=== PATIENT | male | born 1975 | race African-American/Black ===

== ENCOUNTER 2018-11-28 21:49 | Observation (INO) | payer OTHER ==
--- NOTE | 2018-11-28 22:23 | ED ---
General Adult HPI - General Chief complaint: Alcohol Stated complaint: etoh Time Seen by Provider: 11/28/18 21:50 Source: patient, EMS Mode of arrival: EMS Limitations: no limitations - History of Present Illness Initial comments: Dictation was produced using [employer] dictation software. please excuse any grammatical, word or spelling errors. Chief Complaint: 43-year-old male presents with intoxication. History of Present Illness: 33-year-old male he states he had multiple colic beverages. He was walking home. He was approximately one block away from home when law enforcement discovered him. EMS was called and patient was transported to the emergency department. Patient has a complex at this time. States it's in the colic beverages today. Denies any complaints. Patient is wants to sleep. The ROS documented in this emergency department record has been reviewed and confirmed by me. Those systems with pertinent positive or negative responses have been documented in the HPI. All other systems are other negative and/or noncontributory. PHYSICAL EXAM: General Impression: Alert and oriented x3, not in acute distress HEENT: Normocephalic atraumatic, extra-ocular movements intact, pupils equal and reactive to light bilaterally, mucous membranes moist. Cardiovascular: Heart regular rate and rhythm, S1&S2 audible, no murmurs, rubs or gallops Chest: Lungs clear to auscultation bilaterally, no rhonchi, no wheeze, no rales Abdomen: Bowel sounds present, abdomen soft, non-tender, non-distended, no organ omegaly Musculoskeletal: Pulses present and equal in all extremities, no peripheral edema Motor: no focal deficits noted Neurological: CN II-XII grossly intact, no focal motor or sensory deficits noted Skin: Intact with no visualized rashes Psych: Normal affect and mood ED course: 43 y Old male presents with EtOH intoxication. His upon arrival are within acceptable limits. Patient well-appearing. Physical examination is benign. He is cooperative. Return evaluation obtained. CBC unremarkable. Metabolic panel shows sodium 146. Serum alcohol level is 446. Patient is well-appearing at this time. We'll admit patient for acute EtOH intoxication. [facility] is ordered. - Related Data Home Medications Medication Instructions Recorded Confirmed No Known Home Medications 11/28/18 11/28/18 Allergies Allergy/AdvReac Type Severity Reaction Status Date / Time No Known Allergies Allergy Verified 11/28/18 22:04 Review of Systems ROS Statement: Those systems with pertinent positive or pertinent negative responses have been documented in the HPI. ROS Other: All systems not noted in ROS Statement are negative. Past Medical History Past Medical History: Hypertension History of Any Multi-Drug Resistant Organisms: None Reported Past Surgical History: No Surgical Hx Reported Past Psychological History: No Psychological Hx Reported Smoking Status: Current some day smoker Past Alcohol Use History: Occasional Past Drug Use History: None Reported General Exam Limitations: no limitations Course Vital Signs 11/28/18 21:50 Temperature 98.5 F Pulse Rate 96 Respiratory 18 Rate Blood Pressure 137/93 O2 Sat by Pulse 95 Oximetry Medical Decision Making - Lab Data Result diagrams: 11/28/18 22:46 11/28/18 22:46 Lab Results 11/28/18 11/28/18 Range/Units 22:46 22:46 WBC 3.4 L (3.8-10.6) k/uL RBC 3.69 L (4.30-5.90) m/uL Hgb 12.5 L (13.0-17.5) gm/dL Hct 37.4 L (39.0-53.0) % MCV 101.5 H (80.0-100.0) fL MCH 34.0 (25.0-35.0) pg MCHC 33.5 (31.0-37.0) g/dL RDW 13.3 (11.5-15.5) % Plt Count 200 (150-450) k/uL Neutrophils % 50 % Lymphocytes % 35 % Monocytes % 7 % Eosinophils % 3 % Basophils % 1 % Neutrophils # 1.7 (1.3-7.7) k/uL Lymphocytes # 1.2 (1.0-4.8) k/uL Monocytes # 0.2 (0-1.0) k/uL Eosinophils # 0.1 (0-0.7) k/uL Basophils # 0.0 (0-0.2) k/uL Sodium 146 H (137-145) mmol/L Potassium 4.0 (3.5-5.1) mmol/L Chloride 109 H (98-107) mmol/L Carbon Dioxide 29 (22-30) mmol/L Anion Gap 8 mmol/L BUN 10 (9-20) mg/dL Creatinine 0.86 (0.66-1.25) mg/dL Est GFR (CKD-EPI)AfAm >90 (>60 ml/min/1.73 sqM) Est GFR (CKD-EPI)NonAf >90 (>60 ml/min/1.73 sqM) Glucose 94 (74-99) mg/dL Calcium 8.6 (8.4-10.2) mg/dL Magnesium 2.1 (1.6-2.3) mg/dL Total Bilirubin 0.2 (0.2-1.3) mg/dL AST 91 H (17-59) U/L ALT 40 (21-72) U/L Alkaline Phosphatase 93 (38-126) U/L Total Protein 8.2 (6.3-8.2) g/dL Albumin 4.2 (3.5-5.0) g/dL Serum Alcohol 446 H* mg/dL Disposition Clinical Impression: Alcohol intoxication Disposition: ADMITTED IP TO THIS [facility] Condition: Fair Referrals: None,Stated [Primary Care Provider] - 1-2 days Decision Time: 00:03
[2018-11-28 23:03] LABS: ALT 40 U/L (21-72); AST 91 U/L (17-59); African American GFR (CKD) >90 (>60 ml/min/1.73 sqM); Albumin 4.2 g/dL (3.5-5.0); Alkaline Phosphatase 93 U/L (38-126); Anion Gap 8 mmol/L; Basophils % (A) 1 %; Blood Urea Nitrogen 10 mg/dL (9-20); Calcium 8.6 mg/dL (8.4-10.2); Carbon Dioxide 29 mmol/L (22-30); Chloride 109 mmol/L (98-107); Eosinophils # (A) 0.1 k/uL (0-0.7); Eosinophils % (A) 3 %; Glucose 94 mg/dL (74-99); HCT 37.4 % (39.0-53.0); HGB 12.5 gm/dL (13.0-17.5); Lymphocytes # (A) 1.2 k/uL (1.0-4.8); Lymphocytes % (A) 35 %; MCHC 33.5 g/dL (31.0-37.0); MCV 101.5 fL (80.0-100.0); Magnesium 2.1 mg/dL (1.6-2.3); Mean Platelet Volume 7.5; Monocytes # (A) 0.2 k/uL (0-1.0); Monocytes % (A) 7 %; Neutrophils # (A) 1.7 k/uL (1.3-7.7); Neutrophils % (A) 50 %; Non-African American GFR(CKD) >90 (>60 ml/min/1.73 sqM); Platelet Count 200 k/uL (150-450); RBC 3.69 m/uL (4.30-5.90); RDW 13.3 % (11.5-15.5); Sodium 146 mmol/L (137-145); Total Bilirubin 0.2 mg/dL (0.2-1.3); Total Protein 8.2 g/dL (6.3-8.2); WBC 3.4 k/uL (3.8-10.6)
[2018-11-28 23:27] LABS: Alcohol 446 mg/dL
[2018-11-28] MEDS ORDERED: SODIUM CHLORIDE 0.9% 1,000 ML IV STA ×2 (23:36)
[2018-11-28] MEDS ORDERED: FOLIC ACID 1 MG TAB PO STA (23:36)
[2018-11-28] MEDS ORDERED: THIAMINE 100 MG/ML 2 ML VIAL IM STA (23:36)
[2018-11-29] MEDS: MULTIVITAMINS, THERA 1 EACH TAB PO STA (00:01)
[2018-11-29] MEDS ORDERED: NALOXONE 0.4 MG/ML 1 ML VIAL IV PRN (00:04)
[2018-11-29] MEDS ORDERED: ACETAMINOPHEN TAB 325 MG TAB PO PRN (00:04)
[2018-11-29] MEDS ORDERED: LORazepam 2 MG/ML INJ IV PRN ×3 (00:05)
[2018-11-29] MEDS ORDERED: SODIUM CHLORIDE 0.9% 1,000 ML IV SCH (00:15)
[2018-11-29 00:22] VITALS: RESP 16
[2018-11-29 00:24] LABS: Glucose,Whole Blood 85 mg/dL (75-99)
[2018-11-29 02:13] VITALS: PULSE 83
[2018-11-29 04:31] VITALS: BP 117/82; TEMP 97.7
[2018-11-29] MEDS ORDERED: THIAMINE 100 MG TAB PO SCH (17:00)
--- NOTE | 2018-12-04 14:40 | HP ---
HISTORY AND PHYSICAL HISTORY AND PHYSICAL AND DISCHARGE SUMMARY: CHIEF COMPLAINT: Alcohol intoxication. HISTORY OF PRESENT ILLNESS: This is a 43-year-old gentleman was admitted with alcohol intoxication, but; however, the patient LEFT THE HOSPITAL AGAINST MEDICAL ADVICE from the ER itself. Please refer to the ER notes and staff notes and further information. FINAL DIAGNOSIS: Alcohol intoxication. Prognosis remains guarded throughout the hospital stay. MMODL / IJN: [id number] /
== END 2018-11-29 06:50 | disposition left against medical advice (07) ==
LOC: EC 21:49 → 3NMEDONC 11-29 00:04
PROVIDERS: ADMIT Hospitalist; ATTEND Hospitalist
DX: F10.129 Alcohol abuse with intoxication, unspecified (principal); Y90.8 Blood alcohol level of 240 mg/100 ml or more; I10 Essential (primary) hypertension; F17.200 Nicotine dependence, unspecified, uncomplicated; Z53.21 Procedure and treatment not carried out due to patient leaving prior to being seen by health care provider
CPT/HCPCS: 96361; 96360; 96372; 99285; 36415 ×2; 80053; 83735; 85025; G0378; G0480; J3411; 80320

== ENCOUNTER 2023-04-25 20:50 | Emergency (ER) | payer OTHER ==
[2023-04-25] MEDS ORDERED: KETOROLAC 15 MG/ML 1 ML VIAL IM STA (21:06)
--- NOTE | 2023-04-25 21:07 | ED ---
Lower Extremity Injury HPI - General Chief Complaint: Extremity Injury, Lower Stated Complaint: Hip pain Time Seen by Provider: 04/25/23 21:06 Source: patient Mode of arrival: ambulatory Limitations: no limitations - History of Present Illness Initial Comments: 47-year-old male presenting with chief complaint of left ankle pain and bilateral hip pain. Patient states that he slipped on a skateboard 2 months ago and is having soreness. He has no new injury. He has no numbness or tingling. He is observed walking into the department and walking into the triage [facility] with no difficulty. He has not been taking anything at home for pain. - Related Data Home Medications Medication Instructions Recorded Confirmed No Known Home Medications 11/28/18 11/28/18 Allergies Allergy/AdvReac Type Severity Reaction Status Date / Time No Known Allergies Allergy Verified 11/28/18 22:04 Review of Systems ROS Statement: Those systems with pertinent positive or pertinent negative responses have been documented in the HPI. ROS Other: All systems not noted in ROS Statement are negative. Past Medical History Past Medical History: Hypertension History of Any Multi-Drug Resistant Organisms: None Reported Past Surgical History: No Surgical Hx Reported Past Psychological History: No Psychological Hx Reported Smoking Status: Current every day smoker Past Alcohol Use History: Occasional Past Drug Use History: None Reported General Exam Limitations: no limitations General appearance: alert, in no apparent distress Head exam: Present: atraumatic, normocephalic Eye exam: Present: normal appearance, EOMI Neck exam: Present: normal inspection Respiratory exam: Absent: respiratory distress Extremities exam: Present: normal inspection, full ROM Neurological exam: Present: alert, oriented X3 Psychiatric exam: Present: normal affect, normal mood Skin exam: Present: warm, dry Course Vital Signs 04/25/23 21:03 Temperature 98 F Pulse Rate 111 H Respiratory 20 Rate Blood Pressure 130/78 O2 Sat by Pulse 98 Oximetry Medical Decision Making - Medical Decision Making Was pt. sent in by a medical professional or institution (, PA, [employer], urgent care, hospital, or alf...) When possible be specific @ -No Did you speak to anyone other than the patient for history (EMS, parent, family, police, friend...)? What history was obtained from this source @ -No Did you review nursing and triage notes (agree or disagree)? Why? @ -I reviewed and agree with nursing and triage notes Were old charts reviewed (outside hosp., previous admission, EMS record, old EKG, old radiological studies, urgent care reports/EKG's, alf records)? Report findings @ -No old charts were reviewed Differential Diagnosis (chest pain, altered mental status, abdominal pain women, abdominal pain men, vaginal bleeding, weakness, fever, dyspnea, syncope, headache, dizziness, GI bleed, back pain, seizure, CVA, palpatations, mental health, musculoskeletal)? @ -Differential Musculoskeletal Muscular strain, contusion, ligament sprain, fracture, arthritis, septic arthritis, bursitis, cellulitis, muscle spasm, nerve compression, DVT, arterial occlusion, herpes zoster, electrolyte abnormality, tumor.... This is not meant to be in all inclusive list EKG interpreted by me (3pts min.). @ -As above X-rays interpreted by me (1pt min.). @ -None done CT interpreted by me (1pt min.). @ -None done U/S interpreted by me (1pt. min.). @ -None done What testing was considered but not performed or refused? (CT, X-rays, U/S, labs)? Why? @ -None What meds were considered but not given or refused? Why? @ -None Did you discuss the management of the patient with other professionals (professionals i.e. , PA, [employer]SHAL, lab, RT, psych nurse, social work professor, physician recruiter, teacher, chief analytics officer, rifle case repairer)? Give summary @ -No Was smoking cessation discussed for >3mins.? @ -No Was critical care preformed (if so, how long)? @ -No Were there social determinants of health that impacted care today? How? (Homelessness, low income, unemployed, alcoholism, drug addiction, transportation, low edu. Level, literacy, decrease access to med. care, shelter, rehab)? @ -No Was there de-escalation of care discussed even if they declined (Discuss DNR or withdrawal of care, Hospice)? DNR status @ -No What co-morbidities impacted this encounter? (DM, HTN, Smoking, COPD, CAD, Cancer, CVA, ARF, Chemo, Hep., AIDS, mental health diagnosis, sleep apnea, morbid obesity)? @ -None Was patient admitted / discharged? Hospital course, mention meds given and route, prescriptions, significant lab abnormalities, going to OR and other pertinent info. @ -47-year-old male presenting with chief complaint of hip pain and left ankle pain. He states that 2 months ago he slipped on a skateboard and he is having soreness. He has had no new injuries since then. He is observed walking into the department and into the triage [facility]oses without difficulty. Physical exam unremarkable. Patient is treated with Toradol and discharged home. Follow-up with PCP. Report back to ER with any new or worsening symptoms. Discussed return parameters and answered all questions. Patient conveyed verbal understanding and agreed to the plan. I discussed this case in detail with my attending Undiagnosed new problem with uncertain prognosis? @ -No Drug Therapy requiring intensive monitoring for toxicity (Heparin, Nitro, Insulin, Cardizem)? @ -No Were any procedures done? @ -No Diagnosis/symptom? @ -hip pain Acute, or Chronic, or Acute on Chronic? @ -acute Uncomplicated (without systemic symptoms) or Complicated (systemic symptoms)? @ -Uncomplicated Side effects of treatment? @ -No Exacerbation, Progression, or Severe Exacerbation? @ -No Poses a threat to life or bodily function? How? (Chest pain, [place], [place], pneumonia, PE, COPD, DKA, ARF, appy, cholecystitis, CVA, Diverticulitis, Homicidal, Suicidal, threat to staff... and all critical care pts) @ -No Disposition Clinical Impression: Hip pain Disposition: HOME SELF-CARE Condition: Good Instructions (If sedation given, give patient instructions): Hip Pain (ED) Additional Instructions: Follow-up with PCP. Report back to ER with any new or worsening symptoms. Is patient prescribed a controlled substance at d/c from ED?: No Referrals: Sharon Morales MD [Primary Care Provider] - 1-2 days
[2023-04-25 21:43] VITALS: BP 130/78; PULSE 111; RESP 20; TEMP 98
== END 2023-04-25 21:21 | disposition home or self-care (01) ==
LOC: EC 20:50
DX: M25.551 Pain in right hip (principal); M25.552 Pain in left hip; I10 Essential (primary) hypertension; F17.200 Nicotine dependence, unspecified, uncomplicated; W01.0XXA Fall on same level from slipping, tripping and stumbling without subsequent striking against object, initial encounter
CPT/HCPCS: 99283; 96372; J1885

== ENCOUNTER 2023-04-26 18:17 | Emergency (ER) | payer OTHER ==
[2023-04-26 18:45] VITALS: BP 117/73; PULSE 109; RESP 20; TEMP 98.3
--- NOTE | 2023-04-26 18:57 | ED ---
Male Urogenital HPI - General Source: patient, RN notes reviewed Mode of arrival: ambulatory Limitations: no limitations <Vita Cruz - Last Filed: 04/26/23 18:56> <Tess Klein - Last Filed: 04/27/23 01:52> - General Chief complaint: Urogenital Stated complaint: growth urogenital Time Seen by Provider: 04/26/23 18:56 - History of Present Illness Initial comments: Patient is a 47-year-old male presented ER with chief complaint of a groin mass. Patient states that it's been there for years. Patient denies any urinary complaints, constipation/diarrhea, fevers, chills, night sweats. (Vita Cruz) 47-year-old male presenting with chief complaint of a "growth" to his groin. He states that it has been there for years. There is no pain no increasing size no redness no swelling no discharge. He has no changes to this area. No fevers or chills. No nausea or vomiting. He states that he has had diarrhea intermittently for the last 2 years. Patient is currently unhoused. (Tess Klein) - Related Data Home Medications Medication Instructions Recorded Confirmed No Known Home Medications 11/28/18 11/28/18 Allergies Allergy/AdvReac Type Severity Reaction Status Date / Time No Known Allergies Allergy Verified 11/28/18 22:04 Review of Systems ROS Other: All systems not noted in ROS Statement are negative. <Vita Cruz - Last Filed: 04/26/23 18:56> ROS Other: All systems not noted in ROS Statement are negative. <Tess Klein - Last Filed: 04/27/23 01:52> ROS Statement: Those systems with pertinent positive or pertinent negative responses have been documented in the HPI. Past Medical History Past Medical History: Hypertension History of Any Multi-Drug Resistant Organisms: None Reported Past Surgical History: No Surgical Hx Reported Past Psychological History: No Psychological Hx Reported Smoking Status: Current every day smoker Past Alcohol Use History: Occasional Past Drug Use History: None Reported <Vita Cruz - Last Filed: 04/26/23 18:56> General Exam Limitations: no limitations <Vita Cruz - Last Filed: 04/26/23 18:56> Limitations: no limitations General appearance: alert, in no apparent distress Head exam: Present: atraumatic, normocephalic Eye exam: Present: normal appearance, EOMI Neck exam: Present: normal inspection Respiratory exam: Present: normal lung sounds bilaterally. Absent: respiratory distress, wheezes, rales, rhonchi, stridor Cardiovascular Exam: Present: regular rate, normal rhythm, normal heart sounds. Absent: systolic murmur, diastolic murmur, rubs, gallop, clicks GI/Abdominal exam: Present: soft. Absent: distended, tenderness, guarding, rebound, rigid exam: Present: normal inspection. Absent: testicular tenderness, urethral discharge, scrotal swelling External exam: Present: normal external exam Neurological exam: Present: alert, oriented X3 Psychiatric exam: Present: normal affect, normal mood Skin exam: Present: warm, dry <Tess Klein - Last Filed: 04/27/23 01:52> - General Exam Comments Initial Comments: Visual Physical Exam Vital signs reviewed General: Well-appearing, nontoxic, no acute distress. Head: Normocephalic, atraumatic Eyes: PERRLA, EOMI ENT: Airway patent Chest: Nonlabored breathing Skin: No visual rash, normal skin tone Neuro: Alert and oriented 3 Musculoskeletal: No gross abnormalities (Vita Cruz) Course Vital Signs 04/26/23 18:23 Temperature 98.3 F Pulse Rate 109 H Respiratory 20 Rate Blood Pressure 117/73 O2 Sat by Pulse 97 Oximetry Medical Decision Making <Vita Cruz - Last Filed: 04/26/23 18:56> <Tess Klein - Last Filed: 04/27/23 01:52> - Medical Decision Making I performed the quick note portion of the exam. Electronically signed by Vita Cruz PA-C (Vita Cruz) Was pt. sent in by a medical professional or institution ([facility], [employer], urgent care, hospital, or correction...) When possible be specific @ -No Did you speak to anyone other than the patient for history (EMS, parent, family, police, friend...)? What history was obtained from this source @ -No Did you review nursing and triage notes (agree or disagree)? Why? @ -I reviewed and agree with nursing and triage notes Were old charts reviewed (outside hosp., previous admission, EMS record, old EKG, old radiological studies, urgent care reports/EKG's, correction records)? Report findings @ -No old charts were reviewed Differential Diagnosis (chest pain, altered mental status, abdominal pain women, abdominal pain men, vaginal bleeding, weakness, fever, dyspnea, syncope, headache, dizziness, GI bleed, back pain, seizure, CVA, palpatations, mental health, musculoskeletal)? @ -Differential includes hernia, torsion, hydrocele, varicocele, epididymitis, this is not an all-inclusive list EKG interpreted by me (3pts min.). @ -As above X-rays interpreted by me (1pt min.). @ -None done CT interpreted by me (1pt min.). @ -None done U/S interpreted by me (1pt. min.). @ -None done What testing was considered but not performed or refused? (CT, X-rays, U/S, labs)? Why? @ -None What meds were considered but not given or refused? Why? @ -None Did you discuss the management of the patient with other professionals (professionals i.e. , PA, [employer]ESSMENT, lab, RT, psych nurse, social contact worker, risk engineer, teacher, safety instruction police officer, manager landscape)? Give summary @ -No Was smoking cessation discussed for >3mins.? @ -No Was critical care preformed (if so, how long)? @ -No Were there social determinants of health that impacted care today? How? (Homelessness, low income, unemployed, alcoholism, drug addiction, transportation, low edu. Level, literacy, decrease access to med. care, correction, rehab)? @ -No Was there de-escalation of care discussed even if they declined (Discuss DNR or withdrawal of care, Hospice)? DNR status @ -No What co-morbidities impacted this encounter? (DM, HTN, Smoking, COPD, CAD, Cancer, CVA, ARF, Chemo, Hep., AIDS, mental health diagnosis, sleep apnea, morbid obesity)? @ -None Was patient admitted / discharged? Hospital course, mention meds given and route, prescriptions, significant lab abnormalities, going to OR and other pertinent info. @ -47-year-old male presenting with chief complaint of a growth" to his groin that has been present for the last 2 years and unchanged. It is unclear why the patient decided to come in today. He states that he currently does not have a place to stay. Physical exam heart and lungs are clear to auscultation, abdomen is soft, nontender, nondistended. There is slight enlargement over the left testicle, this may be a hydrocele or varicocele. There is no pain or redness. No other alarming features. Patient is instructed to follow-up with his PCP regarding chronic issues. Discharged home. Follow-up with PCP. Report back to ER with any new or worsening symptoms. Discussed return parameters and answered all questions. Patient conveyed verbal understanding and agreed to the plan. I discussed this case in detail with my attending Dr. Callaway Undiagnosed new problem with uncertain prognosis? @ -No Drug Therapy requiring intensive monitoring for toxicity (Heparin, Nitro, Insulin, Cardizem)? @ -No Were any procedures done? @ -No Diagnosis/symptom? @ -Scrotal abnormality Acute, or Chronic, or Acute on Chronic? @ -Chronic Uncomplicated (without systemic symptoms) or Complicated (systemic symptoms)? @ -Uncomplicated Side effects of treatment? @ -No Exacerbation, Progression, or Severe Exacerbation? @ -No Poses a threat to life or bodily function? How? (Chest pain, [place], [place], pneumonia, PE, COPD, DKA, ARF, appy, cholecystitis, CVA, Diverticulitis, Homicidal, Suicidal, threat to staff... and all critical care pts) @ -No (Tess Klein) Disposition <Vita Cruz - Last Filed: 04/26/23 18:56> Is patient prescribed a controlled substance at d/c from ED?: No Time of Disposition: 19:54 <Tess Klein - Last Filed: 04/27/23 01:52> Clinical Impression: Scrotal sac enlargement Disposition: HOME SELF-CARE Condition: Good Instructions (If sedation given, give patient instructions): Hydrocele (ED) Additional Instructions: You need to follow-up with your PCP. Report back to ER with any new or worsening symptoms including pain, redness, swelling, vomiting, fever. Referrals: Sandra Ludwig FNPBC [Family Provider] - 1-2 days
== END 2023-04-26 20:18 | disposition home or self-care (01) ==
LOC: EC 18:17
DX: N50.89 Other specified disorders of the male genital organs (principal); I10 Essential (primary) hypertension; F17.200 Nicotine dependence, unspecified, uncomplicated
CPT/HCPCS: 99282

== ENCOUNTER 2023-04-27 22:39 | Emergency (ER) | payer OTHER ==
[2023-04-27 23:53] VITALS: BP 122/79; PULSE 81; RESP 18; TEMP 98.4
[2023-04-28] MEDS ORDERED: ONDANSETRON ODT 4 MG TAB PO STA (00:23)
--- NOTE | 2023-04-28 00:24 | ED ---
Nausea/Vomiting/Diarrhea HPI - General Chief complaint: Nausea/Vomiting/Diarrhea Stated complaint: N/V/D Time Seen by Provider: 04/27/23 23:51 Source: patient Mode of arrival: ambulatory Limitations: no limitations - History of Present Illness Initial comments: 47-year-old male presenting with chief complaint of nausea. Patient was with a friend in the waiting room for several hours before deciding to check in as a patient. He states he has had nausea for the last 2 days. He has vomited twice. He also states that he has had a bit of cough and congestion due to the weather. No abdominal pain. No fevers or chills. No chest pain or difficulty breathing. No diarrhea. - Related Data Home Medications Medication Instructions Recorded Confirmed No Known Home Medications 11/28/18 11/28/18 Allergies Allergy/AdvReac Type Severity Reaction Status Date / Time No Known Allergies Allergy Verified 11/28/18 22:04 Review of Systems ROS Statement: Those systems with pertinent positive or pertinent negative responses have been documented in the HPI. ROS Other: All systems not noted in ROS Statement are negative. Past Medical History Past Medical History: Hypertension History of Any Multi-Drug Resistant Organisms: None Reported Past Surgical History: No Surgical Hx Reported Past Psychological History: No Psychological Hx Reported Smoking Status: Current every day smoker Past Alcohol Use History: Occasional Past Drug Use History: None Reported General Exam Limitations: no limitations General appearance: alert, in no apparent distress Head exam: Present: atraumatic, normocephalic Eye exam: Present: normal appearance Neck exam: Present: normal inspection Respiratory exam: Absent: respiratory distress Cardiovascular Exam: Present: regular rate Extremities exam: Present: normal inspection Neurological exam: Present: alert, oriented X3 Psychiatric exam: Present: normal affect, normal mood Skin exam: Present: warm, dry Course Vital Signs 04/27/23 23:26 Temperature 98.4 F Pulse Rate 81 Respiratory 18 Rate Blood Pressure 122/79 O2 Sat by Pulse 98 Oximetry Medical Decision Making - Medical Decision Making Was pt. sent in by a medical professional or institution ([facility], [facility] GUIDE, urgent care, hospital, or intermediate...) When possible be specific @ -No Did you speak to anyone other than the patient for history (EMS, parent, family, police, friend...)? What history was obtained from this source @ -No Did you review nursing and triage notes (agree or disagree)? Why? @ -I reviewed and agree with nursing and triage notes Were old charts reviewed (outside hosp., previous admission, EMS record, old EKG, old radiological studies, urgent care reports/EKG's, intermediate records)? Report findings @ -No old charts were reviewed Differential Diagnosis (chest pain, altered mental status, abdominal pain women, abdominal pain men, vaginal bleeding, weakness, fever, dyspnea, syncope, headache, dizziness, GI bleed, back pain, seizure, CVA, palpatations, mental health, musculoskeletal)? @ -Differential includes gastroenteritis, appendicitis, cholecystitis, pancreatitis, this is not an all-inclusive list EKG interpreted by me (3pts min.). @ -As above X-rays interpreted by me (1pt min.). @ -None done CT interpreted by me (1pt min.). @ -None done U/S interpreted by me (1pt. min.). @ -None done What testing was considered but not performed or refused? (CT, X-rays, U/S, labs)? Why? @ -None What meds were considered but not given or refused? Why? @ -None Did you discuss the management of the patient with other professionals (professionals i.e. , PA, WELLNESS GUIDE, lab, RT, psych nurse, social services counselor, marking machine operator, teacher, staff air tactical officer, hospice case manager)? Give summary @ -No Was smoking cessation discussed for >3mins.? @ -No Was critical care preformed (if so, how long)? @ -No Were there social determinants of health that impacted care today? How? (Homelessness, low income, unemployed, alcoholism, drug addiction, transportation, low edu. Level, literacy, decrease access to med. care, care home, rehab)? @ -No Was there de-escalation of care discussed even if they declined (Discuss DNR or withdrawal of care, Hospice)? DNR status @ -No What co-morbidities impacted this encounter? (DM, HTN, Smoking, COPD, CAD, Cancer, CVA, ARF, Chemo, Hep., AIDS, mental health diagnosis, sleep apnea, morbid obesity)? @ -None Was patient admitted / discharged? Hospital course, mention meds given and ro ladarius, prescriptions, significant lab abnormalities, going to OR and other pertinent info. @ -47-year-old male presenting with chief complaint of nausea. Patient was in the waiting room for several hours with a friend before deciding to check in as a patient. History and physical exam are conducted. He is resting comfortably talking and laughing with friends and showing no signs of distress. Patient is negative for influenza, RSV, and COVID. Patient is given Zofran. Discharge. Follow-up with PCP. Report back to ER with any new or worsening symptoms. Discussed return parameters and answered all questions. Patient conveyed verbal understanding and agreed to the plan. I discussed this case in detail with my attending Dr. Farias Undiagnosed new problem with uncertain prognosis? @ -No Drug Therapy requiring intensive monitoring for toxicity (Heparin, Nitro, Insulin, Cardizem)? @ -No Were any procedures done? @ -No Diagnosis/symptom? @ -Nausea Acute, or Chronic, or Acute on Chronic? @ -Acute Uncomplicated (without systemic symptoms) or Complicated (systemic symptoms)? @ -Uncomplicated Side effects of treatment? @ -No Exacerbation, Progression, or Severe Exacerbation? @ -No Poses a threat to life or bodily function? How? (Chest pain, USA, ID, pneumonia, PE, COPD, DKA, ARF, appy, cholecystitis, CVA, Diverticulitis, Homicidal, Suicidal, threat to staff... and all critical care pts) @ -No - Lab Data Lab Results 04/28/23 Range/Units 00:31 Influenza Type A (PCR) Not Detected (Not Detectd) Influenza Type B (PCR) Not Detected (Not Detectd) RSV (PCR) Not Detected (Not Detectd) SARS-CoV-2 (PCR) Not Detected (Not Detectd) Disposition Clinical Impression: Nausea Disposition: HOME SELF-CARE Condition: Good Instructions (If sedation given, give patient instructions): Acute Nausea and Vomiting (ED) Additional Instructions: Follow-up with PCP. Report back to ER with any new or worsening symptoms. Is patient prescribed a controlled substance at d/c from ED?: No Referrals: Sharon Morales MD [Primary Care Provider] - 1-2 days Time of Disposition: 00:36
== END 2023-04-28 01:09 | disposition home or self-care (01) ==
LOC: EC 22:39
DX: R11.2 Nausea with vomiting, unspecified (principal); I10 Essential (primary) hypertension; F17.200 Nicotine dependence, unspecified, uncomplicated; Z20.822 Contact with and (suspected) exposure to COVID-19
CPT/HCPCS: 87636; 99284

== ENCOUNTER 2023-04-28 09:46 | Emergency (ER) | payer OTHER ==
[2023-04-28] MEDS ORDERED: METOCLOPRAMIDE 10 MG TAB PO STA (09:58)
--- NOTE | 2023-04-28 10:01 | ED ---
General Adult HPI - General Source: patient, RN notes reviewed Mode of arrival: ambulatory Limitations: no limitations <Sadaf Quinteros - Last Filed: 04/28/23 09:59> <Hector Johnston - Last Filed: 04/28/23 16:44> - General Chief complaint: Urogenital Stated complaint: swelling in groin Time Seen by Provider: 04/28/23 09:55 - History of Present Illness Initial comments: This is a 47-year-old male who presents to the emergency department for left testicular swelling and nausea/vomiting. Patient was evaluated here last night for nausea and vomiting and treated with Zofran. States that this made him vomit and he continues to feel nauseous. He was also evaluated here couple of days ago for the scrotal swelling, which has been a problem for the last couple of years. He cannot recall what was done for him at that time. Patient does not currently have a place to stay and has been sleeping in the emergency department waiting room and wandering around the hospital for the last 3 days. (Sadaf Quinteros) Patient is a 47-year-old male who presents emergency department complaining of chronic groin symptoms. States he has noticed a swelling in his groin that has been ongoing for "months." No acute changes. States that it sometimes tender but currently denies any pain. Has been seen here multiple times over the last 2 days for the same complaint. No new symptoms. No fevers or chills. No sick contacts. No dysuria or hematuria. No concern for STDs. No urethral discharge . Previously showed hydroceles in the left scrotum. Presents for reevaluation at this time.Patient originally evaluated as a quick note. I evaluated him when he was placed in the room after completion of workup. (Hector Johnston) - Related Data Home Medications Medication Instructions Recorded Confirmed No Known Home Medications 11/28/18 11/28/18 Allergies Allergy/AdvReac Type Severity Reaction Status Date / Time No Known Allergies Allergy Verified 04/28/23 09:58 Review of Systems ROS Other: All systems not noted in ROS Statement are negative. <Sadaf Quinteros - Last Filed: 04/28/23 09:59> ROS Other: All systems not noted in ROS Statement are negative. <Hector Johnston - Last Filed: 04/28/23 16:44> ROS Statement: Those systems with pertinent positive or pertinent negative responses have been documented in the HPI. Review of Systems: CONST: Denies fever EYES: Denies blurry vision ENT: Denies nasal congestion C/V: Denies Chest pain RESP: Denies shortness of breath GI: Denies abdominal pain : Endorses left scrotal swelling SKIN: Denies rash. MSK: Denies joint pain. NEURO: Denies headache (Hector Johnston) Past Medical History Past Medical History: Hypertension History of Any Multi-Drug Resistant Organisms: None Reported Past Surgical History: No Surgical Hx Reported Past Psychological History: No Psychological Hx Reported Smoking Status: Current every day smoker Past Alcohol Use History: Occasional Past Drug Use History: None Reported <Sadaf Quinteros - Last Filed: 04/28/23 09:59> General Exam Limitations: no limitations <Sadaf Quinteros - Last Filed: 04/28/23 09:59> <Hector Johnston - Last Filed: 04/28/23 16:44> - General Exam Comments Initial Comments: Visual Physical Exam Vital signs reviewed General: Well-appearing, nontoxic, no acute distress. Head: Normocephalic, atraumatic Eyes: PERRLA, EOMI ENT: Airway patent Chest: Nonlabored breathing Skin: No visual rash, normal skin tone Neuro: Alert and oriented 3 Musculoskeletal: No gross abnormalities (Sadaf Quinteros) General: Appears in no acute distress. HEAD: Normal with no signs of head trauma. EYES: EOMI. ENT: Hearing grossly intact. RESPIRATORY: No respiratory distress. C/V: Regular rate and rhythm. ABD: Abdomen is nondistended. : Left hemiscrotum enlargement that is nontender. No skin changes. No urethral discharge. Exam unremarkable. EXT: No obvious deformity. SKIN: No rashes or lesions observed on exposed skin. NEURO: Alert and oriented. (Hector Johnston) Course Vital Signs 04/28/23 09:52 Temperature 98 F Pulse Rate 80 Respiratory 18 Rate O2 Sat by Pulse 98 Oximetry Medical Decision Making <Sadaf Quinteros - Last Filed: 04/28/23 09:59> <Hector Johnston - Last Filed: 04/28/23 16:44> - Medical Decision Making I performed the QuickNote portion of this chart. Signed Sadaf Quinteros PA-C. (Sadaf Quinteros) Was pt. sent in by a medical professional or institution ([facility], [facility], urgent care, hospital, or snf...) When possible be specific @ -No Did you speak to anyone other than the patient for history (EMS, parent, family, police, friend...)? What history was obtained from this source @ -No Did you review nursing and triage notes (agree or disagree)? Why? @ -I reviewed and agree with nursing and triage notes Were old charts reviewed (outside hosp., previous admission, EMS record, old EKG, old radiological studies, urgent care reports/EKG's, snf records)? Report findings @ -Old charts reviewed Differential Diagnosis (chest pain, altered mental status, abdominal pain women, abdominal pain men, vaginal bleeding, weakness, fever, dyspnea, syncope, headache, dizziness, GI bleed, back pain, seizure, CVA, palpatations, mental health, musculoskeletal)? @ -Varicocele, UTI, hydrocele. This list is not all inclusive. EKG interpreted by me (3pts min.). @ -None done X-rays interpreted by me (1pt min.). @ -None done CT interpreted by me (1pt min.). @ -None done U/S interpreted by me (1pt. min.). @ -Scrotal ultrasound reveals left sided hydroceles What testing was considered but not performed or refused? (CT, X-rays, U/S, labs)? Why? @ -None What meds were considered but not given or refused? Why? @ -Considered analgesia medications but currently in no distress. Did you discuss the management of the patient with other professionals (professionals i.e. [facility], SOCCER PLAYER, lab, RT, psych nurse, licensed clinical social worker, key bed installer, teacher, radiation officer, pillowcase folder)? Give summary @ -No Was smoking cessation discussed for >3mins.? @ -No Was critical care preformed (if so, how long)? @ -No Were there social determinants of health that impacted care today? How? (Homel essness, low income, unemployed, alcoholism, drug addiction, transportation, low edu. Level, literacy, decrease access to med. care, correction, rehab)? @ -No Was there de-escalation of care discussed even if they declined (Discuss DNR or withdrawal of care, Hospice)? DNR status @ -No What co-morbidities impacted this encounter? (DM, HTN, Smoking, COPD, CAD, Cancer, CVA, ARF, Chemo, Hep., AIDS, mental health diagnosis, sleep apnea, morbid obesity)? @ -None Was patient admitted / discharged? Hospital course, mention meds given and route, prescriptions, significant lab abnormalities, going to OR and other pertinent info. @ -Based on the patient's presentation and physical exam, presents emergency department complaining of a known hydrocele in the left hemiscrotum. Has been seen here multiple times over the last few days for similar complaints. Patient originally seen as a quick note. Urine studies obtained as well as an ultrasound of the scrotum. These are unremarkable. Reveals the known hydroceles on the left. Vital signs are within acceptable limits. I spoke with the patient regarding this, I believe it is safer to be discharged home with follow-up with urology which she has already been told. He was in agreement this plan. I instructed the patient to follow up with their PCP in the next 1-3 days. I provided contact information for follow up with urology. I explained that the patient should return to the emergency department if they experience any worsening symptoms. Strict return precautions were discussed with the patient. The patient expressed understanding of these instructions. I answered all questions that the patient had. The patient was discharged home in good condition with their prescriptions and follow up information. Undiagnosed new problem with uncertain prognosis? @ -No Drug Therapy requiring intensive monitoring for toxicity (Heparin, Nitro, Insulin, Cardizem)? @ -No Were any procedures done? @ -No Diagnosis/symptom? @ -Left hydrocele Acute, or Chronic, or Acute on Chronic? @ -Chronic Uncomplicated (without systemic symptoms) or Complicated (systemic symptoms)? @ -Uncomplicated Side effects of treatment? @ -No Exacerbation, Progression, or Severe Exacerbation? @ -No Poses a threat to life or bodily function? How? (Chest pain, USA, ID, pneumonia, PE, COPD, DKA, ARF, appy, cholecystitis, CVA, Diverticulitis, Homicidal, Suicidal, threat to staff... and all critical care pts) @ -No (Hector Johnston) - Lab Data Lab Results 04/28/23 Range/Units 13:32 Urine Color Yellow Urine Appearance Clear (Clear) Urine pH 6.5 (5.0-8.0) Ur Specific Byron 1.022 (1.001-1.035) Urine Protein Trace H (Negative) Urine Glucose (UA) Negative (Negative) Urine Ketones Negative (Negative) Urine Blood Negative (Negative) Urine Nitrite Negative (Negative) Urine Bilirubin Negative (Negative) Urine Urobilinogen 3.0 (<2.0) mg/dL Ur Leukocyte Esterase Negative (Negative) Urine Opiates Screen Not Detected (NotDetected) Ur Oxycodone Screen Not Detected (NotDetected) Urine Methadone Screen Not Detected (NotDetected) Ur Barbiturates Screen Not Detected (NotDetected) U Tricyclic Antidepress Not Detected (NotDetected) Ur Phencyclidine Scrn Not Detected (NotDetected) Ur Amphetamines Screen Not Detected (NotDetected) U Methamphetamines Scrn Not Detected (NotDetected) U Benzodiazepines Scrn Not Detected (NotDetected) Urine Cocaine Screen Not Detected (NotDetected) U Marijuana (THC) Screen Not Detected (NotDetected) Disposition <Sadaf Quinteros - Last Filed: 04/28/23 09:59> Is patient prescribed a controlled substance at d/c from ED?: No Time of Disposition: 14:28 <Hector Johnston - Last Filed: 04/28/23 16:44> Clinical Impression: Left hydrocele Disposition: HOME SELF-CARE Condition: Good Additional Instructions: You have a hydrocele. Follow up with urology. Referrals: Sharon Morales MD [Primary Care Provider] - 1-2 days Ad Devries MD [STAFF PHYSICIAN] - 1-2 days Forms: [facility] PCPs
[2023-04-28 10:11] VITALS: PULSE 80; RESP 18; TEMP 98
--- NOTE | 2023-04-28 11:04 | US ---
EXAMINATION TYPE: US scrotum with doppler. Grayscale and color Doppler Duplex imaging performed of stephanie rome scrotum. DATE OF EXAM: 04/28/2023 COMPARISON: NONE CLINICAL INDICATION: Male, 47 years old with history of Left testicular swelling; left sided swelling for months, tender, no known injury EXAM MEASUREMENTS: TESTICLES: Right Testicle: 3.0 x 2.9 x 1.8 cm Left Testicle: 2.4 x 1.8 x 2.0 cm EPIDIDYMIS HEAD: Right Epididymis: 1.0 cm Left Epididymis: 1.0 cm Doppler performed to assess for testicular vascularity; good bilateral color flow and waveforms are s een. There is no evidence of testicular torsion. Presence of hydroceles: yes, extensive left sided septated fluid collection Presence of varicoceles: no IMPRESSION: Complex left-sided hydrocele with internal septations seen.
[2023-04-28 14:08] LABS: Cocaine Screen,Urine Not Detected (NotDetected); Opiate Screen,Urine Not Detected (NotDetected); Phencyclidine Screen,Urine Not Detected (NotDetected); Urn Cannabinoid Scrn Not Detected (NotDetected)
[2023-04-28 14:09] LABS: Amphetamine Screen,Urine Not Detected (NotDetected); Barbiturate Screen,Urine Not Detected (NotDetected); Benzodiazepines Screen,Urine Not Detected (NotDetected); Methadone Screen, Urine Not Detected (NotDetected); Oxycodone Screen, Urine Not Detected (NotDetected); Tricyclic Antidepressant,Urine Not Detected (NotDetected)
[2023-04-28 14:16] LABS: Appearance,Urine Clear (Clear); Bilirubin,Urine Negative (Negative); Blood,Urine Negative (Negative); Color,Urine Yellow; Glucose,Urine (UA) Negative (Negative); Ketones,Urine Negative (Negative); Leukocyte Esterase,Urine Negative (Negative); Nitrite,Urine Negative (Negative); PH, Urine 6.5 (5.0-8.0); Protein,Urine Trace (Negative); Specific Gravity,Urine 1.022 (1.001-1.035)
== END 2023-04-28 16:17 | disposition home or self-care (01) ==
LOC: EC 09:46
DX: N43.3 Hydrocele, unspecified (principal); I10 Essential (primary) hypertension; F17.200 Nicotine dependence, unspecified, uncomplicated
CPT/HCPCS: 76870; 80306; 81003; 93975; 99283